=== PATIENT | female | born 1985 | race American Indian/Alaskan Native ===

== ENCOUNTER 2022-01-17 11:12 | Emergency (ER) | payer SELFPAY ==
--- NOTE | 2022-01-17 13:22 | Emergency Department Report ---
ED ENT HPI - General Chief complaint: Earache Stated complaint: EARS CLOGGED WITH PUSS Time Seen by Provider: 01/17/22 13:13 Source: patient Mode of arrival: Ambulatory Limitations: No Limitations - History of Present Illness Initial comments: 36-year-old black male with a past medical history of asthma presents to the emergency department for evaluation of right ear pain and lower back pain. He states that for the past few days he felt like his ear was clogged, so he had put some peroxide in the ear for the second time and it is no longer feel edgar gged but now he has had purulent drainage and pain noted to the right ear. He also complains of lower back pain. He denies injury but states that over the last few days he has just had lower back pain especially when he is at work. He denies urinary symptoms, fever, saddle anesthesia, and penile discharge. -: Gradual, days(s) Location: R ear (2-3) Severity: moderate Severity scale (0 -10): 6 Quality: aching Consistency: constant Improves with: none Worsens with: other (Touch) Associated Symptoms: discharge from ear. denies: fever, cough, gum swelling, toothache, pain with swallowing, sore throat, tinnitus, hearing loss, rhinorrhea - Related Data Previous Rx's Medication Instructions Recorded Last Taken Type Cyclobenzaprine [Flexeril] 10 mg PO TID PRN #21 tab 01/17/22 Unknown Rx Lidocaine [Lidoderm] 1 each TP DAILY #10 patch 01/17/22 Unknown Rx Naproxen [Naprosyn] 500 mg PO BID #14 tab 01/17/22 Unknown Rx Neomy/Polymyx B/Hc (Otic) Soln 4 drops RTEAR TID #1 bottle 01/17/22 Unknown Rx [Cortisporin (Otic) Soln] Allergies Allergy/AdvReac Type Severity Reaction Status Date / Time No Known Allergies Allergy Verified 01/17/22 13:37 ED Dental HPI - General Chief complaint: Earache Stated complaint: EARS CLOGGED WITH PUSS Time Seen by Provider: 01/17/22 13:13 Source: patient Mode of arrival: Ambulatory Limitations: No Limitations - Related Data Previous Rx's Medication Instructions Recorded Last Taken Type Cyclobenzaprine [Flexeril] 10 mg PO TID PRN #21 tab 01/17/22 Unknown Rx Lidocaine [Lidoderm] 1 each TP DAILY #10 patch 01/17/22 Unknown Rx Naproxen [Naprosyn] 500 mg PO BID #14 tab 01/17/22 Unknown Rx Neomy/Polymyx B/Hc (Otic) Soln 4 drops RTEAR TID #1 bottle 01/17/22 Unknown Rx [Cortisporin (Otic) Soln] Allergies Allergy/AdvReac Type Severity Reaction Status Date / Time No Known Allergies Allergy Verified 01/17/22 13:37 ED Review of Systems ROS: Stated complaint: EARS CLOGGED WITH PUSS Other details as noted in HPI Comment: All other systems reviewed and negative Constitutional: denies: chills, fever Eyes: denies: eye pain, eye discharge, vision change ENT: ear pain Respiratory: denies: cough, shortness of breath, SOB with exertion, SOB at rest Cardiovascular: denies: chest pain Gastrointestinal: denies: abdominal pain, nausea, vomiting Genitourinary: denies: urgency, dysuria, frequency, hematuria, discharge Musculoskeletal: back pain Neurological: denies: headache, weakness ED Past Medical Hx - Medications Home Medications: Home Medications Medication Instructions Recorded Confirmed Last Taken Type Cyclobenzaprine [Flexeril] 10 mg PO TID PRN #21 tab 01/17/22 Unknown Rx Lidocaine [Lidoderm] 1 each TP DAILY #10 patch 01/17/22 Unknown Rx Naproxen [Naprosyn] 500 mg PO BID #14 tab 01/17/22 Unknown Rx Neomy/Polymyx B/Hc (Otic) Soln 4 drops RTEAR TID #1 bottle 01/17/22 Unknown Rx [Cortisporin (Otic) Soln] ED Physical Exam - General Limitations: No Limitations General appearance: alert, in no apparent distress - Head Head exam: Present: atraumatic, normocephalic - Eye Eye exam: Present: normal appearance. Absent: conjunctival injection - Expanded ENT Exam Expanded TM/Canal exam: Canal Discharge: Right TM, Canal Tenderness: Right TM - Neck Neck exam: Present: normal inspection. Absent: tenderness, lymphadenopathy - Respiratory Respiratory exam: Present: normal lung sounds bilaterally. Absent: respiratory distress - Cardiovascular Cardiovascular Exam: Present: regular rate, normal heart sounds - GI/Abdominal GI/Abdominal exam: Present: soft, normal bowel sounds. Absent: distended, tenderness, guarding, rebound, rigid - Extremities Exam Extremities exam: Present: normal inspection - Back Exam Back exam: Present: normal inspection, tenderness (Bilateral lower), paraspinal tenderness. Absent: CVA tenderness (R), CVA tenderness (L), vertebral tenderness - Neurological Exam Neurological exam: Present: alert, oriented X3, CN II-XII intact, normal gait, reflexes normal. Absent: motor sensory deficit - Psychiatric Psychiatric exam: Present: normal affect, normal mood - Skin Skin exam: Present: warm, dry, intact, normal color ED Course Vital Signs 01/17/22 01/17/22 12:21 13:49 Temperature 98.5 F 98.6 F Pulse Rate 60 80 Respiratory 16 18 Rate Blood Pressure 108/67 124/80 [Left] O2 Sat by Pulse 100 99 Oximetry ED Medical Decision Making - Medical Decision Making 36-year-old black male with a past medical history of asthma presents to the emergency department for evaluation of right ear pain and lower back pain. He states that for the past few days he felt like his ear was clogged, so he had put some peroxide in the ear for the second time and it is no longer feel clogged but now he has had purulent drainage and pain noted to the right ear. He also complains of lower back pain. He denies injury but states that over the last few days he has just had lower back pain especially when he is at work. He denies urinary symptoms, fever, saddle anesthesia, and penile discharge. Right ear exam consistent with otitis externa, and patient will be treated with Cortisporin drops. No acute findings noted on lower back exam. Musculoskeletal pain only, so patient will be treated with anti-inflammatories, muscle relaxants, and Lidoderm patch. He was advised to take medications as prescribed and follow-up with primary care provider if no improvement or worsening symptoms. He verbalized understanding of and agreement with plan of care. Critical care attestation.: If time is entered above; I have spent that time in minutes in the direct care of this critically ill patient, excluding procedure time. ED Disposition Clinical Impression: Otitis externa Qualifiers: Otitis externa type: unspecified type Chronicity: acute Laterality: right Qualified Code(s): H60.501 - Unspecified acute noninfective otitis externa, right ear Back pain Qualifiers: Back pain location: low back pain Chronicity: acute Back pain laterality: left Sciatica presence: without sciatica Qualified Code(s): M54.50 - Low back pain, unspecified Disposition: 01 HOME / SELF CARE / HOMELESS Is pt being admited?: No Does the pt Need Aspirin: No Condition: Stable Instructions: Otitis Externa, [id number], Ear Drops, Adult, [id number], Acute Back Pain, Adult, Back Injury Prevention, [id number], Pain Without a Known Cause Additional Instructions: Take medications as prescribed. Follow-up with primary care provider for further evaluation and management. Prescriptions: Neomy/Polymyx B/Hc (Otic) Soln [Cortisporin (Otic) Soln] 4 drops RTEAR TID #1 bottle Cyclobenzaprine [Flexeril] 10 mg PO TID PRN #21 tab PRN Reason: Muscle Spasm Lidocaine [Lidoderm] 1 each TP DAILY #10 patch Naproxen [Naprosyn] 500 mg PO BID #14 tab Referrals: KAVYA PALOMO MD [Referring] - 3-5 Days Time of Disposition: 13:22 ED Back Pain HPI - General Chief Complaint: Earache Stated Complaint: EARS CLOGGED WITH PUSS Time Seen by Provider: 01/17/22 13:13 Source: patient - History of Present Illness Timing/Duration: week Quality/Severity: moderate Back Pain Location: lumbar spine Back Pain Radiation: other (None) Method of Injury/Prior Injury: other (None) Associated Symptoms: denies symptoms Allergies/Adverse Reactions: Allergies No Known Allergies Allergy (Verified 01/17/22 13:37) Home Medications: Ambulatory Orders Cyclobenzaprine [Flexeril] 10 mg PO TID PRN #21 tab 01/17/22 Lidocaine [Lidoderm] 1 each TP DAILY #10 patch 01/17/22 Naproxen [Naprosyn] 500 mg PO BID #14 tab 01/17/22 Neomy/Polymyx B/Hc (Otic) Soln [Cortisporin (Otic) Soln] 4 drops RTEAR TID #1 bottle 01/17/22
[2022-01-17] MEDS ORDERED: CYCLOBENZAPRINE 10 MG TAB PO ONE (14:00)
[2022-01-17] MEDS ORDERED: predniSONE 20 MG TAB PO ONE (14:00)
[2022-01-17] MEDS ORDERED: KETOROLAC 10 MG TAB PO ONE (14:00)
[2022-01-17 14:32] VITALS: BP 128/80
== END 2022-01-17 14:32 | disposition home or self-care (01) ==
LOC: ED 11:12
DX: H60.91 Unspecified otitis externa, right ear (principal); M54.50 Low back pain, unspecified
CPT/HCPCS: 99282